=== PATIENT | male | born 1945 | race Caucasian/White ===

== ENCOUNTER 2024-04-23 19:56 | Emergency (ER) | payer MEDICARE, BC ==
[2024-04-23 21:00] LABS: BASOPHILS ABSOLUTE AUTO 0.04 K/uL (0.00-0.10); BASOPHILS PERCENT AUTO 0.8 % (0.1-1.3); EOSINOPHILS ABSOLUTE AUTO 0.22 K/uL (0.00-0.40); EOSINOPHILS PERCENT AUTO 4.3 % (0.0-5.4); HEMATOCRIT 39.5 % (38.4-49.7); HEMOGLOBIN 14.2 g/dL (12.9-16.9); IMMATURE GRAN PERCENT AUTO 0.2 % (0.0-0.7); LYMPHOCYTES ABSOLUTE AUTO 0.96 K/uL (0.8-3.3); LYMPHOCYTES PERCENT AUTO 18.9 % (11.4-47.7); MEAN CORPUSCULAR HEMOGLOBIN 31.8 pg (31.6-35.5); MEAN CORPUSCULAR HGB CONC 35.9 g/dL (31.6-35.5); MEAN CORPUSCULAR VOLUME 88.4 fL (81.4-99.0); MONOCYTES ABSOLUTE AUTO 0.53 K/uL (0.20-0.90); MONOCYTES PERCENT AUTO 10.4 % (3.3-12.6); NEUTROPHILS ABSOLUTE AUTO 3.33 K/uL (1.0-7.6); NEUTROPHILS PERCENT AUTO 65.4 % (40.0-78.1); PLATELET COUNT,PLT 184 K/uL (130-375); RED BLOOD CELL COUNT 4.47 M/uL (4.14-5.76); WHITE BLOOD CELL COUNT,WBC 5.1 K/uL (3.2-11.0)
[2024-04-23 21:01] LABS: IMMATURE GRAN ABSOLUTE AUTO 0.01 K/uL (0.00-0.23)
[2024-04-23 21:15] LABS: ANION GAP 12.4 mmol/L (5.0-14.0); CALCIUM 9.5 mg/dL (8.5-10.1); EST CRCL DRUG DOSING (CG) 57.84 mL/min; POTASSIUM,K 3.4 mmol/L (3.6-5.2)
[2024-04-23] MEDS: Acetaminophen 500 MG Tab PO ONE (23:15)
== END 2024-04-23 23:49 | disposition home or self-care (01) ==
LOC: JP.ED 19:56
DX: S02.2XXA Fracture of nasal bones, initial encounter for closed fracture (principal); I25.2 Old myocardial infarction; Z95.5 Presence of coronary angioplasty implant and graft; Z79.82 Long term (current) use of aspirin; Z79.899 Other long term (current) drug therapy; W19.XXXA Unspecified fall, initial encounter
CPT/HCPCS: 36415; 70450; 70486; 72125; 76377; 80048; 85025; 99284; A9270; 99283